=== PATIENT | female | born 1965 | race Caucasian/White ===

== ENCOUNTER 2022-12-02 03:33 | Emergency (ER) | payer BC, OTHER ==
[2022-12-02] MEDS ORDERED: Tetracaine HCl/PF 0.5% 4 ML Bottle EYERT ONE (03:49)
[2022-12-02] MEDS ORDERED: Gentamicin 0.3% Ophth Soln 5 ML Bottle EYERT STA (04:44)
[2022-12-02 05:04] VITALS: BP 124/88; PULSE 72
== END 2022-12-02 05:00 | disposition home or self-care (01) ==
LOC: MW.ED 03:33
DX: S05.01XA Injury of conjunctiva and corneal abrasion without foreign body, right eye, initial encounter (principal); Z88.5 Allergy status to narcotic agent
CPT/HCPCS: 99283; A9270; J3490

== ENCOUNTER 2023-11-25 20:02 | Emergency (ER) | payer BC, OTHER ==
[2023-11-25 20:33] VITALS: PULSE 72
[2023-11-25 20:54] VITALS: BP 150/95
== END 2023-11-25 20:54 | disposition home or self-care (01) ==
LOC: MW.ED 20:02
DX: Z04.1 Encounter for examination and observation following transport accident (principal); Z88.8 Allergy status to other drugs, medicaments and biological substances; Z86.19 Personal history of other infectious and parasitic diseases; Z75.8 Other problems related to medical facilities and other health care
CPT/HCPCS: 99281; 99283